=== PATIENT | female | born 1980 | race Caucasian/White ===

== ENCOUNTER 2016-06-13 09:16 | Emergency (ER) | payer OTHER ==
[2016-06-13 09:27] VITALS: RESP 18; TEMP 99.2; O2SAT 99
[2016-06-13] MEDS ORDERED: Sodium Chloride 0.9% 1,000 ML IV ONE (10:12)
[2016-06-13] MEDS ORDERED: Sodium Chloride 0.9% 1,000 ML ONE (10:58)
[2016-06-13 11:09] LABS: BASO % 0.5 % (0.0-2.0); EOS # 0.7 K/uL (0.0-0.7); EOS % 11.2 % (0.0-4.0); HEMATOCRIT 41.6 % (34.0-47.0); LYMPH # 2.4 K/uL (1.0-4.3); MEAN CELL VOLUME 87.7 fL (81.0-99.0); MEAN CORPUSCULAR HEMOGLOBIN 28.7 pg (27.0-31.0); MEAN CORPUSCULAR HGB CONC 32.8 g/dL (33.0-37.0); MEAN PLATELET VOLUME 9.1 fL (7.2-11.7); MONO # 0.3 K/uL (0.0-0.8); MONO % 4.6 % (0.0-10.0); WHITE BLOOD COUNT 6.5 K/uL (4.8-10.8)
[2016-06-13] MEDS ORDERED: Belladonna-Phenobarbital ONE (11:10)
[2016-06-13] MEDS ORDERED: Aluminum Hydroxide/Magnesium Hydroxide Susp (30 mL) ONE (11:10)
--- NOTE | 2016-06-13 11:24 | C.PDOC ---
History Of Present Illness The patient, 35 y/o female, presents to the ED for evaluation of left lower abdominal pain which has been occurring in intermittent episodes for the past 2 weeks. Patient describes her pain as dull and occasionally sharp. Patient also reports increased urinary frequency and dysuria for the past 2 days. Patient notes feeling slight constipation, with bowel movements (non-bloody) occurring every other day. Otherwise, patient denies fever, chills, nausea, vomiting, and diarrhea. Time Seen by Provider: 06/13/16 10:07 Chief Complaint (Nursing): Abdominal Pain History Per: Patient History/Exam Limitations: no limitations Onset/Duration Of Symptoms: Days (2), Intermittent Episodes (2 weeks ) Current Symptoms Are (Timing): Still Present Location Of Pain/Discomfort: Other (left lower abdomen ) Radiation Of Pain To:: None Quality Of Discomfort: Sharp (occasionally ), Dull, "Pain" Associated Symptoms: Constipation, Urinary Symptoms (increased urinary frequency and dysuria ). denies: Fever, Chills, Nausea, Vomiting, Diarrhea Exacerbating Factors: None Alleviating Factors: None Additional History Per: Patient Abnormal Vaginal Bleeding: No Past Medical History Reviewed: Historical Data, Nursing Documentation, Vital Signs Vital Signs: Last Vital Signs Temp 99.2 F 06/13/16 09:26 Pulse 75 06/13/16 13:13 Resp 18 06/13/16 13:13 BP 119/82 06/13/16 13:13 Pulse Ox 99 06/13/16 13:30 - Medical History PMH: No Chronic Diseases Surgical History: No Surg Hx Family History: States: Unknown Family Hx - Social History Hx Alcohol Use: No Hx Substance Use: No - Immunization History Hx Tetanus Toxoid Vaccination: No Hx Influenza Vaccination: No Hx Pneumococcal Vaccination: No Review Of Systems Except As Marked, All Systems Reviewed And Found Negative. Constitutional: Negative for: Fever, Chills Gastrointestinal: Positive for: Abdominal Pain (left lower abdomen ), Constipation. Negative for: Nausea, Vomiting, Diarrhea Genitourinary: Positive for: Dysuria, Frequency Physical Exam - Physical Exam Appears: Non-toxic, No Acute Distress Skin: Normal Color, Warm, Dry Head: Atraumatic, Normacephalic Eye(s): bilateral: Normal Inspection Oral Mucosa: Moist Neck: Supple Chest: Symmetrical, No Deformity, No Tenderness Cardiovascular: Rhythm Regular, No Murmur Respiratory: Normal Breath Sounds, No Rales, No Rhonchi, No Wheezing Gastrointestinal/Abdominal: Tenderness (to left lower quadrant with deep palpation ), No Guarding, No Rebound Back: Normal Inspection, No CVA Tenderness, No Vertebral Tenderness, No Paraspinal Tenderness Extremity: Normal ROM, Capillary Refill (less than 2 seconds ) Neurological/Psych: Oriented x3, Normal Speech, Normal Cognition Gait: Steady ED Course And Treatment - Laboratory Results Result Diagrams: 06/13/16 10:56 06/13/16 11:25 O2 Sat by Pulse Oximetry: 99 (on RA) Pulse Ox Interpretation: Normal - CT Scan/US CT A/P Other Rad Studies (CT/US): Interpreted By Me, Read By Radiologist, Radiology Report Reviewed CT/US Interpretation: Accession No. : [id number]. Patient Name / ID : ALLIE WISE / [id number]. Exam Date : 06/13/2016 12:30:02 ( Approved ). Study Comment : Sex / Age : F / 35Y. Creator : Leeann Garner MD. Dictator : Leeann Ganrer MD. Television Cameraman : Tilesetter : Leeann Garner MD. Approver2 : Report Date : 06/13/2016 12:53:20. My Comment : . PROCEDURE: CT Abdomen and Pelvis with intravenous contrast. HISTORY: LLQ abd pain. COMPARISON: None. TECHNIQUE: Contrast dose: 100 mL. Radiation dose: Total exam DLP = 1057.68 mGy-cm. This CT exam was performed using one or more of the following dose reduction techniques: Automated exposure control, adjustment of the mA and/ or kV according to patient size, and/or use of iterative reconstruction technique. Please note that due to lack of oral contrast, evaluation of bowel is limited. FINDINGS: LOWER THORAX: Calcified granuloma in the left lung base. LIVER: Unremarkable. No gross lesion or ductal dilatation. GALLBLADDER AND BILE DUCTS: Unremarkable. PANCREAS: Unremarkable. No gross lesion or ductal dilatation. SPLEEN: Unremarkable. ADRENALS: Unremarkable. No mass. KIDNEYS AND URETERS: Unremarkable. No hydronephrosis. No solid mass. VASCULATURE: Unremarkable. No aortic aneurysm. BOWEL: Unremarkable. No obstruction. No gross mural thickening. Small hiatal hernia. APPENDIX: Normal appendix. PERITONEUM: Small amount of fluid in the cul-de-sac. LYMPH NODES: Unremarkable. No enlarged lymph nodes. BLADDER: Unremarkable. REPRODUCTIVE: Please note that evaluation of gynecologic organs is not optimal on CT imaging. The perineal region is suboptimally seen. BONES: Degenerative changes at L4- L5 with vacuum disc phenomenon. OTHER FINDINGS: None. IMPRESSION: No acute bowel pathology. Further imaging can be obtained as per clinical indications. Other findings as above. Medical Decision Making Medical Decision Making: Impression: 35 y/o female with left lower abdominal pain, urinary frequency, dysuria, constipation Plan: * labs * CT A/P * Pepcid IV * IV fluids * reassess and disposition Progress Notes: labs, CT A/P ordered and reviewed. Patient received Pepcid IV and IV Labs were unremarkable. UA shows UTI. CT A/P shows no acute diverticulitis or other abnormality Upon reevaluation, patient is resting comfortably in no acute distress. Discussed results with patient, and copy of report was provided. Patient reports improvement of symptoms. Patient feels comfortable going home and will be discharged. Patient given follow up instructions. Instructed to return to ER if symptoms worsen or new symptoms arise. Disposition Counseled Patient/Family Regarding: Diagnosis, Need For Followup, Rx Given - Disposition Referrals: [facility] [Outside] [facility] [Outside] Disposition: HOME/ ROUTINE Disposition Time: 12:59 Condition: IMPROVED Additional Instructions: Vaya a perez mdico o la clnica en 2-5 salter sin falta, para mas evaluacin. [place] los medicamentos jomar indicado. Volver a la bonnie de emergencia en cualquier momento si los sntomas persisten o empeoran. Prescriptions: Ciprofloxacin [Cipro] 1 tab PO BID #14 tab Instructions: Urinary Tract Infection in Women (ED) Print Language: MONGOLIAN - POA Present On Arrival: None - Clinical Impression Clinical Impression: Constipation, UTI (urinary tract infection) - PA / DRUPAL WEB DEVELOPER / Resident Statement MD/DO has reviewed & agrees with the documentation as recorded. - Scribe Statement The provider has reviewed the documentation as recorded by the Scribe (Manuela Gonzalez) All medical record entries made by the Scribe were at my direction and personally dictated by me. I have reviewed the chart and agree that the record accurately reflects my personal performance of the history, physical exam, medical decision making, and the department course for this patient. I have also personally directed, reviewed, and agree with the discharge instructions and disposition.
[2016-06-13 11:35] LABS: RBC URINE 1 /hpf (0-3); URINE BACTERIA RARE (<OCC); URINE BILIRUBIN NEGATIVE (NEGATIVE); URINE BLOOD NEGATIVE (NEGATIVE); URINE COLOR Yellow (YELLOW); URINE GLUCOSE (UA) NORMAL (Normal); URINE KETONE NEGATIVE (NEGATIVE); URINE LEUKOCYTE ESTERASE 2+ Leu/uL (Negative); URINE PROTEIN NEGATIVE (NEGATIVE); URINE UROBILINOGEN NORMAL mg/dL (0.2-1.0); WBC URINE 25 /hpf (0-5)
[2016-06-13 11:39] LABS: CHLORIDE 104 mmol/L (98-107)
[2016-06-13 11:40] LABS: SODIUM 137 mmol/L (132-148)
[2016-06-13 11:42] LABS: BILIRUBIN,TOTAL 0.3 mg/dL (0.2-1.3); CARBON DIOXIDE 25 mmol/L (22-30); GFR AFRICAN-AMERICAN > 60
[2016-06-13 11:43] LABS: ALB/GLOB RATIO 1.3 (1.0-2.1); ALKALINE PHOSPHATASE 86 U/L (38-126); ALT/SGPT 30 U/L (9-52); AST/SGOT 22 U/L (14-36); BLOOD UREA NITROGEN 16 mg/dL (7-17); CALCIUM 8.5 mg/dl (8.6-10.4); GLUCOSE,RANDOM 95 mg/dL (65-105); TOTAL PROTEIN 7.1 g/dL (6.3-8.3)
[2016-06-13] MEDS ORDERED: Iodixanol 320 MG/ML 100 ML BOTTLE IV ONE (12:16)
--- NOTE | 2016-06-13 12:55 | CT ---
PROCEDURE: CT Abdomen and Pelvis with intravenous contrast HISTORY: LLQ abd pain COMPARISON: None. TECHNIQUE: Contrast dose: 100 mL. Radiation dose: Total exam DLP = 1057.68 mGy-cm. This CT exam was performed using one or more of the following dose reduction techniques: Automated exposure control, adjustment of the mA and/or kV according to patient size, and/or use of iterative reconstruction technique. Please note that due to lack of oral contrast, evaluation of bowel is limited. FINDINGS: LOWER THORAX: Calcified granuloma in the left lung base. LIVER: Unremarkable. No gross lesion or ductal dilatation. GALLBLADDER AND BILE DUCTS: Unremarkable. PANCREAS: Unremarkable. No gross lesion or ductal dilatation. SPLEEN: Unremarkable. ADRENALS: Unremarkable. No mass. KIDNEYS AND URETERS: Unremarkable. No hydronephrosis. No solid mass. VASCULATURE: Unremarkable. No aortic aneurysm. BOWEL: Unremarkable. No obstruction. No gross mural thickening. Small hiatal hernia. APPENDIX: Normal appendix. PERITONEUM: Small amount of fluid in the cul-de-sac. LYMPH NODES: Unremarkable. No enlarged lymph nodes. BLADDER: Unremarkable. REPRODUCTIVE: Please note that evaluation of gynecologic organs is not optimal on CT imaging. The perineal region is suboptimally seen. BONES: Degenerative changes at L4-L5 with vacuum disc phenomenon. OTHER FINDINGS: None. IMPRESSION: No acute bowel pathology. Further imaging can be obtained as per clinical indications. Other findings as above.
[2016-06-13 13:15] VITALS: BP 119/82; PULSE 75
== END 2016-06-13 13:15 | disposition home or self-care (01) ==
LOC: C.ER 09:16
DX: N39.0 Urinary tract infection, site not specified (principal); K59.00 Constipation, unspecified
CPT/HCPCS: 74177; 80053; 81001; 83690; 84703; 85025; 96361; 96374; 99285; J7040; Q9967